=== PATIENT | female | born 1965 | race Caucasian/White ===

== ENCOUNTER 2017-02-18 13:29 | Outpatient (CLI) | payer MEDICAID | END 2017-02-18 13:30 | disposition home or self-care (01) | DX: R92.1 Mammographic calcification found on diagnostic imaging of breast (principal); E03.9 Hypothyroidism, unspecified ==

== ENCOUNTER 2017-02-18 13:45 | Outpatient (CLI) | payer MEDICAID | END 2017-02-18 13:46 | disposition home or self-care (01) | DX: R92.1 Mammographic calcification found on diagnostic imaging of breast (principal) ==

== ENCOUNTER 2017-03-21 14:27 | Outpatient (CLI) | payer MEDICAID ==
--- NOTE | 2017-03-21 15:18 | XRAY Report ---
THREE-VIEW LEFT ANKLE: 03/21/2017 CLINICAL INDICATION: Left calcaneal pain. FINDINGS: AP, lateral, oblique views of the left ankle demonstrate no evidence of fracture or disloc ation. Soft tissue swelling is seen. A small posterior calcaneal spur is present. IMPRESSION: SMALL POSTERIOR CALCANEAL SPUR. NO EVIDENCE OF FRACTURE. JOB #: [id number] EXT JOB #:[id number]
== END 2017-03-21 14:28 | disposition home or self-care (01) ==
LOC: DI 14:27
PROVIDERS: ATTEND Podiatrist Foot & Ankle Surgery
DX: M77.32 Calcaneal spur, left foot (principal)

== ENCOUNTER 2017-05-31 13:22 | Outpatient (CLI) | payer MEDICAID ==
[2017-05-31] MEDS ORDERED: GADOBUTROL 15 MMOL/15 ML VIAL IVP ONE (15:28)
--- NOTE | 2017-05-31 22:01 | MRI Report ---
EXAM: LEFT ANKLE/HINDFOOT MRI WITHOUT AND WITH CONTRAST EXAM DATE: 05/31/2017 03:34 PM. CLINICAL HISTORY: Ganglion cyst. COMPARISON: None. TECHNIQUE: Multiplanar, multisequence T1-weighted and fluid-sensitive sequences of the ankle before a nd after administration of intravenous contrast. IV contrast: Gadolinium. Other: An external marker w as placed adjacent to the area of palpable concern. FINDINGS: Bones: An os trigonum variant is present. Articular Cartilage: Unremarkable. Ligaments: The anterior and posterior tibiofibular, anterior and posterior talofibular, and calcaneof ibular ligaments are intact. The deep and superficial deltoid and spring ligaments are intact. Anterior Tendons: The tibialis anterior, extensor hallucis longus, and extensor digitorum longus tend ons are unremarkable. Medial Tendons: The tibialis posterior, flexor digitorum longus, and flexor hallucis longus tendons a re unremarkable. Lateral Tendons: The peroneus brevis and longus are unremarkable. Achilles Tendon: The Achilles tendon is unremarkable. Musculature: No edema or fatty atrophy. Other: No effusions or synovitis. The contents of the sinus tarsi and tarsal tunnel are unremarkable. No plantar fasciitis. There is an approximately 1 x 1.1 x 0.7 cm area of slight T2 hyperintense sign al and isointense to slightly hyperintense T1 signal within the superficial subcutaneous fat at the p osterior aspect of the heel, which corresponds to the area of palpable concern. There is no appreciab le enhancement within or around this area. IMPRESSION: 1. An approximately 1 x 1.1 x 0.7 cm area of slight T2 hyperintense and isointense to slightly hyperi ntense T1 signal within the superficial subcutaneous fat at the posterior aspect of the heel. The are a does not have the typical appearance of a ganglion cyst. Differential may include a lipoma, well-di fferentiated liposarcoma, fibroma, atypical cyst. If warranted, consider further evaluation with a ti ssue sampling procedure. [facility]CULOSKE[facility] SECTION Referring Provider Line: [phone] SITE ID: [id number]
== END 2017-05-31 13:23 | disposition home or self-care (01) ==
LOC: DI 13:22
PROVIDERS: ATTEND Podiatrist Foot & Ankle Surgery
DX: M67.40 Ganglion, unspecified site (principal)
CPT/HCPCS: 73723; A9585

== ENCOUNTER 2017-06-01 14:47 | Emergency (ER) | payer MEDICAID ==
[2017-06-01] MEDS ORDERED: HYDROmorphone 1 MG/ML SYRINGE IM STA (15:15)
[2017-06-01] MEDS ORDERED: ONDANSETRON ODT 4 MG TABLET TL STA (15:15)
--- NOTE | 2017-06-01 15:17 | ED Physician Documentation ---
PD HPI ABD PAIN - Stated complaint Stated Complaint: RIGHT SIDED PAIN - Chief complaint Chief Complaint: UTI - History obtained from History obtained from: Patient - History of Present Illness Timing - onset: Other (She has a known stone in her left kidney, scheduled for retrieval by a urologist in [place] this coming Tuesday, the . Since yesterday has had pain in her left kidney with difficulty urinating and some dysuria and some chills and she was referred here by her urologist to rule out pyelonephritis because that would delay her surgery.) Review of Systems Constitutional: reports: Chills. denies: Fever Cardiac: denies: Chest pain / pressure, Palpitations Respiratory: denies: Dyspnea, Cough GI: reports: Abdominal Pain, Nausea, Vomiting. 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: Other : Kidney stones HEENT: None Psych: Depression, Anxiety, Bipolar disorder, Panic attacks, Claustrophobia Musculoskeletal: Other Derm: None - Past Surgical History Past Surgical History: Yes /FIELD SERVICE TECH: Hysterectomy - Present Medications Home Medications: Ambulatory Orders Medication Instructions Recorded Confirmed Levothyroxine [Synthroid] 125 mcg ORAL DAILY 03/03/15 07/16/16 Simvastatin 20 mg PO DAILY 03/03/15 07/16/16 Topiramate 50 mg PO BID 03/03/15 07/16/16 lamoTRIgine [LaMICtal] 100 mg PO BID 03/03/15 07/15/16 Pantoprazole Sodium 20 mg PO DAILY 03/13/16 07/16/16 Fenofibrate 160 mg ORAL DAILY 05/22/16 07/16/16 Hydroxyzine Pamoate [Vistaril] 50 mg PO DAILY 05/22/16 07/16/16 Cyclobenzaprine [Flexeril] 10 mg PO DAILY PRN 07/15/16 07/16/16 Ketorolac [Toradol] 10 mg PO QID PRN 07/15/16 07/16/16 - Allergies Allergies/Adverse Reactions: Allergies Allergy/AdvReac Type Severity Reaction Status Date / Time bupropion HCl * Allergy Hives Verified 06/01/17 14:58 [From Wellbutrin] NSAIDS (Non-Steroidal AdvReac Unknown Verified 06/01/17 14:58 Anti-Inflamma - Social History Does the pt smoke?: No Smoking Status: Former smoker Does the pt drink ETOH?: No Does the pt have substance abuse?: No - Immunizations Immunizations are current?: No Immunizations: TDAP >10years/unknown - POLST Patient has POLST: No PD ED PE NORMAL - Vitals Vital signs reviewed: Yes - General General: Alert and oriented X 3, No acute distress - Abdomen Abdomen: Soft, Non tender - Back Back: No CVA TTP, No spinal TTP - Extremities Extremities: No edema, No calf tenderness / cord - Neuro Neuro: Alert and oriented X 3, Normal speech - Psych Psych: Normal mood, Normal affect Results - Vitals Vitals: Vital Signs - 24 hr 06/01/17 14:53 Temperature 36.4 C L Heart Rate 70 Respiratory 18 Rate Blood Pressure 123/81 H O2 Saturation 97 Oxygen O2 Source Room air - Labs Labs: Laboratory Tests 06/01/17 15:11 Urine Color YELLOW Urine Clarity HAZY Urine pH 6.0 Ur Specific [place] >=1.030 H Urine Protein NEGATIVE Urine Glucose (UA) NEGATIVE Urine Ketones NEGATIVE Urine Occult Blood SMALL H Urine Nitrite NEGATIVE Urine Bilirubin NEGATIVE Urine Urobilinogen 0.2 (NORMAL) Ur Leukocyte Esterase NEGATIVE Urine RBC 6-10 H Urine WBC 6-10 H Urine WBC Clumps PRESENT Ur Squamous Epith Cells MANY Squamous H Urine Bacteria Rare Urine Mucus Marked Strands Ur Microscopic Review INDICATED Urine Culture Comments NOT INDICATED Departure - Departure Disposition: 01 Home, Self Care Clinical Impression: Flank pain Condition: Good Record reviewed to determine appropriate education?: Yes Comments: As discussed your urinalysis is not consistent with any significant infection. Call your specialist and discuss ongoing plan of care. Your blood pressure was elevated today on check into the emergency department. This does not mean that you have hypertension, it is a common phenomenon to come to the emergency department and have elevated blood pressure. I recommend that she see her primary care physician within the week to have it rechecked when you are feeling better.
[2017-06-01] MEDS ORDERED: ONDANSETRON ODT 4 MG TABLET ONE (15:26)
[2017-06-01] MEDS ORDERED: HYDROmorphone 1 MG/ML SYRINGE ONE (15:26)
[2017-06-01 15:55] LABS: BILIRUBIN,URINE NEGATIVE (NEGATIVE)
[2017-06-01 15:58] LABS: UA w/ MICROSCOPIC CHARGE YES
[2017-06-01 16:01] LABS: UR CULTURE IF IND NOT INDICATED
[2017-06-01 16:16] VITALS: BP 124/82
== END 2017-06-01 16:22 | disposition home or self-care (01) ==
LOC: ED 14:47
DX: R10.31 Right lower quadrant pain (principal); R03.0 Elevated blood-pressure reading, without diagnosis of hypertension; E03.9 Hypothyroidism, unspecified; E78.00 Pure hypercholesterolemia, unspecified; K21.9 Gastro-esophageal reflux disease without esophagitis; Z87.442 Personal history of urinary calculi; Z87.891 Personal history of nicotine dependence
CPT/HCPCS: 81001; 96372; 99283; J1170; Q0162; 81003; 87086

== ENCOUNTER 2017-07-12 10:42 | Outpatient (CLI) | payer MEDICAID | END 2017-07-12 10:43 | disposition home or self-care (01) | LOC: DI 10:42 | PROVIDERS: ATTEND Physician Assistant | DX: R01.1 Cardiac murmur, unspecified (principal) | CPT/HCPCS: 93306 ==

== ENCOUNTER 2020-12-13 14:06 | Emergency (ER) | payer SELFPAY ==
--- NOTE | 2020-12-13 14:14 | ED Physician Documentation ---
PD HPI SKIN - Stated complaint Stated Complaint: BUG BITE - Chief complaint Chief Complaint: Wound - History obtained from History obtained from: Patient - History of Present Illness Timing - onset: How many days ago (3-4) Timing - duration: Days (3-4) Timing - details: Gradual onset, Still present Location: Scalp (right postauricular area) Quality / character: Painful, Discolored (red), Swelling, Draining (some draining yesterday) Associated symptoms: Fever (yesterday), Headache (right occipital and parietal area.). No: N/V/D Similar symptoms before: Has not had sx before Recently seen: Not recently seen (moved from [place] 5 days ago; had lived here 4 years ago and moved there.) Review of Systems Constitutional: reports: Fever. denies: Chills Nose: denies: Rhinorrhea / runny nose, Congestion Throat: denies: Sore throat Respiratory: denies: Cough Skin: reports: Lesions Musculoskeletal: denies: Neck pain, Back pain Neurologic: denies: Focal weakness, Numbness, Near syncope PD PAST MEDICAL HISTORY - Past Medical History Cardiovascular: High cholesterol Respiratory: None, Other (lung tumor that was in progress of being worked up; wa s to get biopsy and then consider chemo. That was last December. Dropped follow up on that due to COVID. 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: Hysterectomy - Present Medications Home Medications: Ambulatory Orders Medication Instructions Recorded Confirmed Levothyroxine [Synthroid] 125 mcg ORAL DAILY 03/03/15 12/13/20 Topiramate 50 mg PO BID 03/03/15 12/13/20 lamoTRIgine [LaMICtal] 100 mg PO BID 03/03/15 12/13/20 Pantoprazole Sodium 20 mg PO DAILY 03/13/16 12/13/20 hydrOXYzine pamoate [Vistaril] 50 mg PO DAILY PRN 05/22/16 12/13/20 Cyclobenzaprine [Flexeril] 10 mg PO DAILY PRN 07/15/16 12/13/20 Ketorolac [Toradol] 10 mg PO QID PRN 07/15/16 12/13/20 HYDROcod/ACETAM 5/325 [[place] 5/325] 1 ea PO Q6H PRN #10 tab 12/13/20 Mupirocin Calcium [Mupirocin] 1 applic TP TID #15 gm 12/13/20 Sulfamethox/Trimeth 800/160 1 each PO BID #14 tab 12/13/20 [Bactrim Ds 800/160] - Allergies Allergies/Adverse Reactions: Allergies Allergy/AdvReac Type Severity Reaction Status Date / Time bupropion HCl * Allergy Hives Verified 12/13/20 14:12 [From Wellbutrin] NSAIDS (Non-Steroidal AdvReac Unknown Verified 12/13/20 14:12 Anti-Inflamma - Social History Does the pt smoke?: No Smoking Status: Former smoker Does the pt drink ETOH?: No Does the pt have substance abuse?: No - Immunizations Immunizations are current?: No Immunizations: TDAP >10years/unknown - POLST Patient has POLST: No PD ED PE NORMAL - Vitals Vital signs reviewed: Yes - General General: Alert and oriented X 3, No acute distress (complains of some headache, but does not appear in distress. ), Well developed/nourished - HEENT HEENT: Ears normal, Other (right postauricular area with patch of redness, small skin ulcerations 1-2 mm, and very tender. No fluctuance. ) - Neck Neck: Supple, no meningeal sign, No adenopathy - Cardiac Cardiac: RRR, No murmur - Respiratory Respiratory: Clear bilaterally - Derm Derm: Normal color, Warm and dry - Neuro Neuro: Alert and oriented X 3, Normal speech Results - Vitals Vitals: Vital Signs - 24 hr 12/13/20 12/13/20 14:09 14:56 Temperature 36.3 C L 36.6 C Heart Rate 77 92 Respiratory 17 16 Rate Blood Pressure 154/93 H 139/85 H O2 Saturation 100 98 Oxygen O2 Source Room air PD MEDICAL DECISION MAKING - ED course Complexity details: considered differential (seems like local skin infection. No other patches or regional tenderness to suggest shingles. ), d/w patient Departure - Departure Disposition: 01 Home, Self Care Clinical Impression: Scalp abscess Condition: Stable Instructions: ED Staph Infec Abx Tx Only Prescriptions: Sulfamethox/Trimeth 800/160 [Bactrim Ds 800/160] 1 each PO BID #14 tab Mupirocin Calcium [Mupirocin] 1 applic TP TID #15 gm HYDROcod/ACETAM 5/325 [[place] 5/325] 1 ea PO Q6H PRN #10 tab PRN Reason: Pain Comments: Clean the area with soap and water couple of times a day. Apply mupirocin topical antibiotic to the area lightly. Tylenol if needed for pains and add hydrocodone if needed for worse pain. I would anticipate the need for this only in the first couple of days as the infection improves. Bactrim antibiotic twice daily for the next 5 to 7 days until this seems fully resolved. Recheck if not well resolved over the next 3 to 5 days and fully resolved by 5- 7. Recheck if worsening or more lesions develop.
[2020-12-13] MEDS ORDERED: MUPIROCIN 2% OINT 1 GM TOP STA (14:47)
[2020-12-13] MEDS ORDERED: SULFAMETH/TRIMETH DS 800/160 MG TABLET PO STA (14:47)
[2020-12-13] MEDS ORDERED: ACETAMINOPHEN 325 MG TABLET PO STA (14:47)
[2020-12-13 14:57] VITALS: BP 139/85
== END 2020-12-13 15:13 | disposition home or self-care (01) ==
LOC: ED 14:06
DX: L02.811 Cutaneous abscess of head [any part, except face] (principal); L98.499 Non-pressure chronic ulcer of skin of other sites with unspecified severity; R51.9 Headache, unspecified; Z87.891 Personal history of nicotine dependence
CPT/HCPCS: 99283; 99284; A9270